=== PATIENT | female | born 1995 | race Caucasian/White ===

== ENCOUNTER 2018-09-19 09:39 | Emergency (ER) | payer BC ==
[~2018-09-19] VITALS: Ht 170.2 cm; Wt 65.9 kg
[2018-09-19] MEDS ORDERED: ZOFRAN 4MG T4 MG/TAB PO (10:08)
[2018-09-19 10:18] LABS: COLLECTION METHOD CLEAN CATCH
[2018-09-19 10:34] LABS: MUCOUS Present /lpf; PH 5 (5-8); SQUAMOUS EPITHELIAL 20-50 /hpf; URINE APPEARANCE Hazy; URINE BACTERIA Rare /hpf; URINE BILIRUBIN Negative (NEGATIVE); URINE BLOOD Negative (NEGATIVE); URINE COLOR Amber; URINE GLUCOSE Negative (NEGATIVE); URINE KETONE 2+ (NEGATIVE); URINE LEUKOCYTE ESTERASE Negative (NEGATIVE); URINE NITRATE Negative (NEGATIVE); URINE PROTEIN(semi-quant) 1+ (NEGATIVE); URINE UROBILINOGEN Negative (NEGATIVE)
[2018-09-19] MEDS ORDERED: ZOFRAN ODT4 MG PO (13:50)
[2018-09-19] MEDS ORDERED: PHENERGAN25 MG RC (13:50)
[2018-09-19 14:10] VITALS: BP 102/61; PULSE 88; TEMP 98.9
== END 2018-09-19 14:06 | disposition home or self-care (01) ==
LOC: COL.ER 09:39
PROVIDERS: Emergency Medicine
DX: O21.9 Vomiting of pregnancy, unspecified (principal); Z3A.25 25 weeks gestation of pregnancy
CPT/HCPCS: J2550; J2765; J7030

== ENCOUNTER 2021-07-02 18:36 | Emergency (ER) | payer OTHER, BC ==
[~2021-07-02] VITALS: Ht 170.2 cm; Wt 68.2 kg
[~2021-07-02 18:36] MED LIST: PHENERGAN25 MG RC; ZOFRAN 4MG T4 MG/TAB PO; ZOFRAN ODT4 MG PO
[2021-07-02 18:39] VITALS: TEMP 97.8
[2021-07-02 19:49] VITALS: BP 100/62; PULSE 95
== END 2021-07-02 19:51 | disposition home or self-care (01) ==
LOC: COL.ER 18:36
DX: S83.005A Unspecified dislocation of left patella, initial encounter (principal); X50.9XXA Other and unspecified overexertion or strenuous movements or postures, initial encounter; Y93.68 Activity, volleyball (beach) (court)
CPT/HCPCS: J2270; J2405

== ENCOUNTER 2022-06-17 00:48 | Inpatient (IN) | payer BC ==
[2022-06-17] VITALS (25 sets, daily range): BP systolic 101–134; BP diastolic 47–81; PULSE 52–83; TEMP 97.2–98.4
[~2022-06-17] VITALS: Ht 170.2 cm; Wt 78.6 kg
--- NOTE | 2022-06-17 00:55 | NUR ---
G2L1 at 39 weeks and 1 day arrives to unit with complaint of contractions every 5 minutes for the last hour. Pt reports being induced with last and delivered 3 hours after induction started and didn't have time for epidural. Pt denies leakage of fluid but reports small amount of vaginal bleeding. Pt denies headaches, blurry vision, or RUQ pain. Pt oriented to room, call light within reach, bed in low and locked position. Clean gown on. US and toco explained and applied. Admission assessment started. Vitals obtained. SVE 4/70/-3, vertex position palpated. Membranes intact. Reviewed labor check protocol with patient and spouse, verbalized understanding.
--- NOTE | 2022-06-17 02:05 | NUR ---
SVE unchanged over 1 hour. Pt states she thinks contractions might be getting more intense. Reviewed labor assessment and options. Pt wishes to stay for an additional hour to be reevaluated.
--- NOTE | 2022-06-17 03:40 | NUR ---
18G IV started in right forearm with 1 attempt. Admission labs obtained off IV start. Lactated ringers bolus infusing to gravity. Consents reviewed and signed with patient and spouse. All questions answered.
[2022-06-17 03:49] LABS: BASO % 0.3 % (0.0-2.0); EOS # 0.1 K/mm3 (0.0-0.7); EOS % 0.6 % (0.0-4.0); GRAN # 12.6 K/mm3 (1.4-6.5); GRAN % 82.3 % (42.2-75.2); HEMATOCRIT 35.1 % (37.0-47.0); LYMPH # 1.6 K/mm3 (1.2-3.4); LYMPH % 10.7 % (20.0-51.0); MEAN CELL VOLUME 89 fl (80.0-100.0); MEAN CORPUSCULAR HEMOGLOBIN 30 pg (27-31); MEAN CORPUSCULAR HGB CONC 34 g/dl (33.0-37.0); MEAN PLATELET VOLUME 11.9 fl (7.4-10.4); MONO # 0.9 K/mm3 (0.1-0.6); MONO % 5.6 % (1.7-9.3); PLATELET COUNT 224 K/mm3 (130-400); RED BLOOD COUNT 3.95 M/mm3 (4.10-5.30); REDCELL DISTRIBUTION WIDTH-CV 13.3 % (11.5-14.5)
--- NOTE | 2022-06-17 04:06 | NUR ---
0345 - Pt requesting epidural at this time. Jessica Goldman CRNA notified, will come to bedside. 0405 - RAMOS Fall at bedside. Pt positioned to sitting on edge of bed. Epidural procedure, risks, and benefits reviewed with patient, verbalized understanding. 0406 - Single shot by RAMOS Fall, pt denies any adverse reactions. 0410 - Pt positioned to wedge left. Safety precautions reviewed. Call light within reach, bed in low and locked position. See anesthesia record.
--- NOTE | 2022-06-17 04:45 | NUR ---
Nunez catheter placed to dependent drainage at this time. Yellow urine returned. Secured to leg with statlock. SVE 6/-2. Pt positioned back to wedge left for comfort.
--- NOTE | 2022-06-17 07:04 | NUR ---
[address] OSBORNE. PT OF ON UNIT ON UNIT, /-1, SROM AT 0654, HX OF PRECIPT DELIVERY, GBS+, 39.1, G2L1. [address] OSBORNE, PT COMPLETE AND FEELING PRESSURE AT THIS TIME. MERCADO REMOVED, NO PRACTICE PUSHING. 0726 DR. OSBORNE ON UNIT, ROOM SET UP FOR DELIVERY, APPROPRIATE STAFF NOTIFIED. 0728 STARTED PUSHING. GOOD MATERNAL EFFORT. 0733 OF VIABLE FEMALE , PERINEUM INTACT, DELIVERED BY DR. OSBORNE. PLACED ON MATERNAL ABDOMEN AND CARE ASSUMED BY BJ REN. 0739 OF PLACENTA. CALCIFICATIONS NOTED ON PLACENTA. FUNDUS FIRM AND AT THE UMBILICUS. BLEEDING SCANT. VITAL SIGNS WNL. BED PUT BACK TOGETHER, PITOCIN BOLUS INFUSING PER PROTOCOL, ICE PACK PLACED ON PERINEUM. PT COMFORTABLE, BABY SKIN TO SKIN AT THIS TIME.
--- NOTE | 2022-06-17 09:40 | NUR ---
THIS RN RECEIVES REPORT FROM Reginaldo THAO RN
--- NOTE | 2022-06-17 10:50 | NUR ---
THIS RN ASSISTS PT TO SITTING UP ON BEDSIDE. EPIDURAL CATHETER REMOVED. CATHETER TIP INTACT. PT TO BATHROOM WITH STANDBY ASSIST. PERICARE DONE. CLEAN PAD AND UNDERWEAR PLACED. CLEAN GOWN GIVEN. PT TOLERATES WELL. THIS RN WHEELCHAIRS PT TO 207. PT ORIENTED TO ROOM. REFUSES ANY PAIN MEDICATION. CALL LIGHT WITHIN REACH.
[2022-06-18] VITALS: BP 108/66; PULSE 52; TEMP 98.7
[2022-06-18 07:53] VITALS: BP 110/60; PULSE 70; TEMP 97.8
--- NOTE | 2022-06-18 08:54 | NUR ---
Initial visit; Parents thanked Drying Can Worker for offering congratulations and God's blessings for the of their daughter. Drying Can Worker thanked family for choosing [facility].
[2022-06-18 15:21] VITALS: BP 124/68; PULSE 76; TEMP 98.4
[2022-06-18 21:05] VITALS: BP 115/64; PULSE 51; TEMP 98.1
[2022-06-19 06:45] VITALS: BP 109/70; PULSE 77; TEMP 98
--- NOTE | 2022-06-19 10:20 | NUR ---
DISCHARGE TEACHING COMPLETED. PATIENT EDUCATED ON FOLLOW UP APPOINTMENT. QUESTIONS INVITED AND ANSWERED.
== END 2022-06-19 10:20 | disposition home or self-care (01) | DRG 807 ==
LOC: LDRO 00:48 → OB 03:17 → LDR 03:17 → OB 10:00
PROVIDERS: Obstetrics & Gynecology; ADMIT Obstetrics & Gynecology
PROC: 10E0XZZ Delivery of Products of Conception, External Approach (ICD-10-PCS; principal; 2022-06-17)
DX: O99.824 Streptococcus B carrier state complicating childbirth (principal); Z37.0 Single live birth; Z3A.39 39 weeks gestation of pregnancy; O21.0 Mild hyperemesis gravidarum; O35.0XX0 Maternal care for (suspected) central nervous system malformation in fetus, not applicable or unspecified; Z53.29 Procedure and treatment not carried out because of patient's decision for other reasons
CPT/HCPCS: J2540; J7120